=== PATIENT | female | born 2000 | race Caucasian/White ===

== ENCOUNTER → 2021-06-02 | Outpatient (CLI) | payer OTHER | LOC: COL.RAD 09:08 | DX: G43.909 Migraine, unspecified, not intractable, without status migrainosus (principal); M62.81 Muscle weakness (generalized) | CPT/HCPCS: A9585 ==

== ENCOUNTER 2022-05-02 13:29 | Emergency (ER) | payer OTHER ==
[~2022-05-02] VITALS: Ht 162.6 cm; Wt 54.5 kg
[2022-05-02 14:43] VITALS: BP 109/72; PULSE 70; TEMP 98.2
== END 2022-05-02 14:43 | disposition home or self-care (01) ==
LOC: COL.ER 13:29
DX: Z20.3 Contact with and (suspected) exposure to rabies (principal)